=== PATIENT | female | born 1955 | race Caucasian/White ===

== ENCOUNTER → 2023-08-25 | Outpatient (CLI) | payer MEDICARE ==
--- NOTE | 2023-08-25 09:02 | US ---
EXAMINATION TYPE: US carotid duplex BILAT DATE OF EXAM: 08/25/2023 COMPARISON: NONE CLINICAL INDICATION: Female, 67 years old with history of E03.9 HYPOTHYROIDISM; Right side bruit TECHNIQUE: Carotid duplex ultrasound examination. Indirect Doppler criteria was utilized. 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 Criteria for Assigning % of Stenosis / Diameter reduction (Estimation based on the indirect measurements of the internal carotid artery velocities (ICA PSV). 1. Normal (no stenosis)=ICA PSV < 125 cm/s: ratio < 2.0: ICA EDV<40 cm/s. 2. Less than 50% stenosis=ICA PSV < 125 cm/s: ratio < 2.0: ICA EDV<40 cm/s. 3. 50 to 69% stenosis=ICA PSV of 125 to 230 cm/s: ration 2.0 ? 4.0: ICA EDV 40-100 cm/s. 4. Greater than 70% stenosis to near occlusion= ICA PSV > 230 cm/s: ratio > 4.0: ICA EDV > 100 cm/s. 5. Near occlusion= ICA PSV velocities may be low or undetectable: variable ratio and ICA EDV. 6. Total occlusion=unable to detect flow.
--- NOTE | 2023-08-25 09:45 | US ---
EXAMINATION TYPE: US thyroid st tissue head/neck DATE OF EXAM: 08/25/2023 COMPARISON: NONE CLINICAL INDICATION: Female, 67 years old with history of E03.9 HYPOTHYROIDISM; hypothyroidism on syn throid GLAND SIZE: Right Lobe: 5.4x2.9x2.3 cm Overall Parenchyma: heterogenous Left Lobe: 6.4x3.0x3.1 cm Overall Parenchyma: heterogenous Isthmus Thickness: 0.9 cm NODULES RIGHT: # of nodules measured on right: 1 1. 2.4 X 1.5 x 1.5 cm, lower lateral, TIRADS Score: 2 TIRADS Category 2: Not Suspicious Composition: Mixed cystic and solid (1 point). Echogenicity: Hyperechoic or isoechoic (1 point). Shape: Wider than tall (0 points). Margin: Smooth (0 points). Echogenic foci: None or large comet-tail artifacts (0 points) Recommendation: No FNA LEFT: # of nodules measured on left: 1 1. 1.2 X 1.2 x 1.2 cm, lower medial, TIRADS Score: 0 TIRADS Category 1: Benign Composition: Cystic or almost completely cystic (0 points). Recommendation: No FNA ISTHMUS: # of nodules measured in the isthmus: 0 Bilateral neck scanned, no evidence of lymphadenopathy. Diffusely heterogenous multinodular thyroid. >1cm colloid cyst measured on left, and largest nodule v s heterogeneous area measured on right. IMPRESSION: No suspicious thyroid nodules.
--- NOTE | 2023-08-26 11:45 | MM ---
Reason for Exam: Screening (asymptomatic). Last mammogram was performed 1 year(s) and 2 month(s) ago. Patient History: Menarche at age 12. Patient has no children. Postmenopausal. US breast aspiration single LT - 2 on the Left side. Maternal cousin had breast cancer under age 50. Risk Values: Susanna 5 year model risk: 1.7%. NCI Lifetime model risk: 5.4%. Prior Study Comparison: 05/23/2019 Bilateral Screening Mammogram, Unknown. 04/14/2021 Bilateral Screening Mammogram, Unknown. 06/08/2022 Bilateral Screening Mammogram, Unknown. Tissue Density: The breast tissue is heterogeneously dense. This may lower the sensitivity of mammography. Findings: Analyzed By CAD. There is no suspicious group of microcalcifications or new suspicious mass in either breast. Overall Assessment: Benign, BI-RAD 2 Management: Screening Mammogram of both breasts in 1 year. . Patient should continue monthly self-breast exams. A clinical breast exam by your physician is recommended on an annual basis. This exam should not preclude additional follow-up of suspicious palpable abnormalities. Note on Susanna scores and lifetime risk: 1. A Susanna score greater than 3% is considered moderate risk. If this is the case, consider specialist referral to assess eligibility for a risk reducing agent. 2. If overall lifetime risk for the development of breast cancer is 20% or higher, the patient may qualify for future screening with alternating mammogram and breast MRI. Electronically signed and approved by: John Jones M.D. Radiologis
== END | disposition home or self-care (01) ==
LOC: RADUSWWP 07:41
PROVIDERS: ATTEND Internal Medicine
DX: Z12.31 Encounter for screening mammogram for malignant neoplasm of breast (principal); E03.9 Hypothyroidism, unspecified; I65.23 Occlusion and stenosis of bilateral carotid arteries; R09.89 Other specified symptoms and signs involving the circulatory and respiratory systems; Z78.0 Asymptomatic menopausal state; Z80.3 Family history of malignant neoplasm of breast
CPT/HCPCS: 76536; 77063; 77067; 93880

== ENCOUNTER → 2023-08-25 | Outpatient (CLI) | payer MEDICARE | END | disposition home or self-care (01) | LOC: RADMAMWWP 09:44 | PROVIDERS: ATTEND Internal Medicine | DX: Z53.9 Procedure and treatment not carried out, unspecified reason (principal) ==

== ENCOUNTER → 2024-09-26 | Outpatient (CLI) | payer MEDICARE ==
--- NOTE | 2024-09-26 16:26 | US ---
EXAMINATION TYPE: US carotid duplex BILAT DATE OF EXAM: 09/26/2024 COMPARISON: US 08/25/2023 CLINICAL INDICATION: Female, 68 years old with history of [id number] BILATERAL CAROTID ARTERY STENOSIS; Hy pertension, hyperlipidemia, prior smoker. Additional History: .... TECHNIQUE: Grayscale, color Doppler and spectral Doppler evaluation of the bilateral carotid systems and vertebral arteries. Indirect Doppler criteria was utilized. 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 ICA/CCA ratio was 2.4 on both sides. Some plaque seen within bilateral bulbs. Color Doppler imaging shows patency with blood flow throughout the carotid artery. IMPRESSION: Right: 50-69% stenosis of the carotid bifurcation. 50 to 69% stenosis=ICA PSV of 125 to 230 cm/s: ration 2.0 - 4.0: ICA EDV 40-100 cm/s. Left: 50-69% stenosis of the carotid bifurcation. 50 to 69% stenosis=ICA PSV of 125 to 230 cm/s: ration 2.0 - 4.0: ICA EDV 40-100 cm/s. Criteria for Assigning % of Stenosis / Diameter reduction (Estimation based on the indirect measurements of the internal carotid artery velocities (ICA PSV). 1. Normal (no stenosis)=ICA PSV < 125 cm/s: ratio < 2.0: ICA EDV<40 cm/s. 2. Less than 50% stenosis=ICA PSV < 125 cm/s: ratio < 2.0: ICA EDV<40 cm/s. 3. 50 to 69% stenosis=ICA PSV of 125 to 230 cm/s: ration 2.0 ? 4.0: ICA EDV 40-100 cm/s. 4. Greater than 70% stenosis to near occlusion= ICA PSV > 230 cm/s: ratio > 4.0: ICA EDV > 100 cm/s. 5. Near occlusion= ICA PSV velocities may be low or undetectable: variable ratio and ICA EDV. 6. Total occlusion=unable to detect flow. [facility], , 09/26/2024 4:23 PM
--- NOTE | 2024-09-26 16:28 | US ---
EXAMINATION TYPE: US thyroid st tissue head/neck DATE OF EXAM: 09/26/2024 COMPARISON: US 08/25/2023 CLINICAL INDICATION: Female, 68 years old with history of E041 THYROID NODULE; Pt takes levothyroxine . Hx FNA years ago TECHNIQUE: Grayscale and color Doppler imaging of the thyroid gland. FINDINGS: GLAND SIZE: Right Lobe: 5.8 x 2.4 x 2.2 cm. Measurement is limited. Overall Parenchyma: heterogeneous Left Lobe: 6.1 x 2.2 x 2.2 cm. Measurement is limited. Overall Parenchyma: heterogeneous Isthmus Thickness: 0.59 cm NODULES RIGHT: # of nodules measured on right: 1 1. 1.8 X 1.4 x 1.9 cm, mid mid, Prior size: 2.4 x 1.5 x 1.5 cm TIRADS Score: 2 TIRADS Category 2: Composition: Mixed cystic and solid (1 point). Echogenicity: Hyperechoic or isoechoic (1 point). Shape: Wider than tall (0 points). Margin: Smooth (0 points). Echogenic foci: None or large comet-tail artifacts (0 points) Recommendation: No FNA LEFT: # of nodules measured on left: 2 1. 1.9 X 1.6 x 1.7 cm, lower medial, TIRADS Score: 2 TIRADS Category 2: Composition: Mixed cystic and solid (1 point). Echogenicity: Hyperechoic or isoechoic (1 point). Shape: Wider than tall (0 points). Margin: Smooth (0 points). Echogenic foci: None or large comet-tail artifacts (0 points) Recommendation: No FNA 2. 1.1 X 1.2 x 1.0 cm, lower lateral, mixed cystic and solid, hypoechoic nodule, which is wider th an tall, with smooth margins, without echogenic foci. Prior size: Cannot correlate TIRADS Score: 2 TIRADS Category 2: Composition: Mixed cystic and solid (1 point). Echogenicity: Hyperechoic or isoechoic (1 point). Shape: Wider than tall (0 points). Margin: Smooth (0 points). Echogenic foci: None or large comet-tail artifacts (0 points) Recommendation: No FNA ISTHMUS: # of nodules measured in the isthmus: 0 Bilateral neck scanned, no evidence of lymphadenopathy. IMPRESSION: Bilateral thyroid nodules that do not meet criteria for biopsy, consider follow-up in one year. [facility], , 09/26/2024 4:25 PM
--- NOTE | 2024-09-27 10:51 | BD ---
EXAMINATION TYPE: Axial Bone Density DATE OF EXAM: 09/26/2024 CLINICAL HISTORY: 68 years old Female. ICD-10 CODE: [id number], Z780 OSTEO SCREENING - POST TANI PT , Ad ditional History: Height: 64 Weight: 164.5 FRAX RISK QUESTIONS: Alcohol (3 or more units per day): no Family History (Parent hip fracture): no Glucocorticoids (More than 3mos): no (Ex: prednisone, prednisolone, methylprednisolone, dexamethasone, and hydrocortisone). History of Fracture in Adulthood: no Secondary Osteoporosis: 1. Type 1 Diabetes: no 2. Hyperthyroidism: no 3. Menopause before 45: yes 4. Malnutrition: no 5. Chronic liver disease: no Rheumatoid Arthritis: no Current Tobacco Use: no RISK FACTORS HISTORY OF: Hip Fracture (Right/Left): no Spine Fracture: no History of Wrist Fracture: no Surgery to Spine/Hip(right/left)/Wrist (right/left): no MEDICATIONS: Thyroid Medications: Levothyroxine How Long: since 1994 Osteoporosis Medications: non currently EXAM MEASUREMENTS: Bone mineral densitometry was performed using the [employer] System. Bone mineral density as measured about the Lumbar spine is: ----- L1-L4(G/cm2): 0.986 T Score Values are as follows: ----- L1: -1.3 ----- L2: -1.8 ----- L3: -1.3 ----- L4: -2.1 ----- L1-L4: -1.6 Z Score Values are as follows: ----- L1: 0.1 ----- L2: -0.4 ----- L3: 0.0 ----- L4: -0.7 ----- L1-L4: -0.3 Baseline Study Bone mineral density about the R hip (g/cm2): 0.779 Bone mineral density about the L hip (g/cm2): 0.893 T Score values are as follows: -----R Neck: -2.3 -----L Neck: -1.9 -----R Total: -1.8 -----L Total: -0.9 Z Score values are as follows: -----R Neck: -0.8 -----L Neck: -0.4 -----R Total: -0.5 -----L Total: 0.4 Baseline Study FRAX%s: The graph provided illustrates a 13.6hance for a major osteoporotic fx and a 3.2chance for th e hips probability for fx in 10 years time. IMPRESSION: Osteopenia (T Score between -2.5 and -1). There is slightly increased risk of fracture and the patient may be considered for treatment. Re-Screen 2-5 years. NOTE: T-SCORE=SD OF THE YOUNG ADULT MEAN. [facility], , 09/27/2024 10:49 AM
--- NOTE | 2024-09-27 14:42 | MM ---
Reason for Exam: Screening (asymptomatic). Last mammogram was performed 1 year(s) and 1 month(s) ago. Patient History: Menarche at age 12. Patient has no children. Postmenopausal. US breast aspiration single LT - 2 on the Left side. Maternal cousin had breast cancer under age 50. Risk Values: Susanna 5 year model risk: 1.7%. NCI Lifetime model risk: 5.1%. Prior Study Comparison: 04/14/2021 Bilateral Screening Mammogram, Unknown. 06/08/2022 Bilateral Screening Mammogram, Unknown. 08/25/2023 Bilateral MG 3D screening mammo w/cad, [facility]. Tissue Density: The breasts are heterogeneously dense, which may obscure small masses. Findings: Analyzed By CAD. Nodular density far posterior right breast 8 cm from the nipple measuring 8 size. Additional views and ultrasound recommended. Overall Assessment: Incomplete: need additional imaging evaluation, BI-RAD 0 Management: Diagnostic Mammogram of the right breast. . Patient should continue monthly self-breast exams. A clinical breast exam by your physician is recommended on an annual basis. This exam should not preclude additional follow-up of suspicious palpable abnormalities. Note on Susanna scores and lifetime risk: 1. A Susanna score greater than 3% is considered moderate risk. If this is the case, consider specialist referral to assess eligibility for a risk reducing agent. 2. If overall lifetime risk for the development of breast cancer is 20% or higher, the patient may qualify for future screening with alternating mammogram and breast MRI. [facility], , 09/27/2024 2:39 PM. Electronically signed and approved by: John Jones M.D. Radiologis
== END | disposition home or self-care (01) ==
LOC: RADUSWWP 14:58
PROVIDERS: ATTEND Internal Medicine
DX: Z12.31 Encounter for screening mammogram for malignant neoplasm of breast (principal); R92.333 Mammographic heterogeneous density, bilateral breasts; M85.89 Other specified disorders of bone density and structure, multiple sites; E04.1 Nontoxic single thyroid nodule; I65.23 Occlusion and stenosis of bilateral carotid arteries; I10 Essential (primary) hypertension; E78.5 Hyperlipidemia, unspecified; Z80.3 Family history of malignant neoplasm of breast; Z78.0 Asymptomatic menopausal state; Z87.891 Personal history of nicotine dependence
CPT/HCPCS: 76536; 77063; 77067; 77080; 93880

== ENCOUNTER → 2024-10-09 | Outpatient (CLI) | payer MEDICARE ==
--- NOTE | 2024-10-09 14:39 | MM ---
Reason for Exam: Additional evaluation requested from abnormal screening. Last screening mammogram was performed less than 1 month ago. Patient History: Menarche at age 12. Patient has no children. Postmenopausal. US breast aspiration single LT - 2 on the Left side. Maternal cousin had breast cancer under age 50. Risk Values: Susanna 5 year model risk: 1.7%. NCI Lifetime model risk: 5.1%. Tissue Density: Right: The breasts are heterogeneously dense, which may obscure small masses. Findings: Analyzed By CAD. Lateral subareolar asymmetric density on the CC view does not persist on spot compression compatible with superimposition shadow. 8 mm nodule in the low axillary tail is compatible with a lymph node, unchanged from the 2021 exam. No significant change from prior exams. Patient has a known history of intermittent nipple inversion, currently noted on the lateral view. Overall Assessment: Benign, BI-RAD 2 Management: Screening Mammogram of both breasts in 1 year. Results were given to the patient verbally at the time of exam. Patient should continue monthly self-breast exams. A clinical breast exam by your physician is recommended on an annual basis. This exam should not preclude additional follow-up of suspicious palpable abnormalities. Note on Susanna scores and lifetime risk: 1. A Susanna score greater than 3% is considered moderate risk. If this is the case, consider specialist referral to assess eligibility for a risk reducing agent. 2. If overall lifetime risk for the development of breast cancer is 20% or higher, the patient may qualify for future screening with alternating mammogram and breast MRI. [facility], , 10/09/2024 2:35 PM. Electronically signed and approved by: Jeremiah Hawthorne M.D. Radiologist
== END | disposition home or self-care (01) ==
LOC: RADMAMWWP 13:59
PROVIDERS: ATTEND Internal Medicine
DX: R92.8 Other abnormal and inconclusive findings on diagnostic imaging of breast (principal); Z78.0 Asymptomatic menopausal state; Z80.3 Family history of malignant neoplasm of breast; R92.331 Mammographic heterogeneous density, right breast
CPT/HCPCS: 77065; G0279; 77061

== ENCOUNTER → 2025-03-26 | Outpatient (CLI) | payer MEDICARE ==
--- NOTE | 2025-03-26 15:07 | CA ---
Stress Echo Report Savita Metcalf Age: 69 Gender: F : 1955 Exam Date: 03/26/2025 10:13 Exam Location: [facility] Ht (in): 64 Wt (lb): 168 Ordering Physician: Corby Schuler DO Referring Physician: Corby Schuler DO Flight Reservations Manager: SHAKA Technologist Procedure CPT: Indication: R94.31 ABNORMAL ELECTROCARDIOGRAM [ECG] [EKG] ICD-9 Codes: Rhythm: Patient History: Cardiac Medications: lisinopril, atorvastatin, levothyroxine, diltiazem Medications in past 24 hours: Contrast: N/A Stress Results Protocol: [place] Total dose(mL): NA Exercise Duration (min:sec): 8:[address] Depression (mm): Angina Score: Moore Score: METS: 9.7 Resting HR: 74 Resting BP: 148 / 82 Peak HR: 137 Peak BP: 205 / 55 Max Predicted HR: 149 92 % Max Predicted HR Target HR: 127 Double Product: [id number] Stress Summary: BP Response: Reason for Termination: MAX EXERTION/TARGET HR Cardiac Symptoms: NO SYMPTOMS ECG Analysis Resting ECG: Stress ECG: Arrhythmia: Echo Analysis Resting Echo: Peak Echo Analysis: MEASUREMENTS (Male/Female) Normal Values CONCLUSIONS Reason for test Abnormal EKG, hypertension, dyslipidemia Exercise stress echo revealed average exercise capacity of 8 minutes on a [place] protocol Mildly hypertensive response to exercise. Peak blood pressure 205/55 mmHg Abnormal ECG at baseline with a [address] depression noted at recovery No echocardiographic evidence for ischemia. Excellent augmentation of overall LV contractility without development of any wall motion abnormalities at peak exercise or recovery Dr. Dewey Mueller MD (Electronically Signed) Final Date: 26 Mar 2025 15:06
== END | disposition home or self-care (01) ==
LOC: RADNMMAIN 09:47
PROVIDERS: ATTEND Internal Medicine
DX: R94.31 Abnormal electrocardiogram [ECG] [EKG] (principal); I10 Essential (primary) hypertension; E78.5 Hyperlipidemia, unspecified
CPT/HCPCS: 93351